=== PATIENT | female | born 1935 | race Caucasian/White ===

== ENCOUNTER 2016-08-22 13:58 | Outpatient (RCR) | payer OTHER, MEDICARE | END 2016-11-20 | disposition home or self-care (01) | LOC: PT | DX: R53.1 Weakness (principal); Z91.81 History of falling ==

== ENCOUNTER 2017-05-20 11:32 | Inpatient (IN) | payer MEDICARE, OTHER ==
[~2017-05-20] VITALS: Ht 165.1 cm; Wt 61.2 kg
--- NOTE | 2017-05-20 12:50 | NUR ---
Pt admitted SWB to room 208. Pt transferred from [facility] via POV driven by . Pt A&O. Reports being very weak and SOB. Noted to use purse-lipped breathing with extended conversation and upon ambulation. Sats 93-94% RA. Pt noted to have multiple bruises to bilat arms from IV's and lab draws during previous hospitalization. Lungs CTA with diminished bases. No crackles or wheezes noted. BS active x 4, pt reports last BM today. Pt noted to have reddened area to sacrum, tissue intact. Stimulators noted to each buttock, pt reports one is dorsal and one is peripheral and reports new generator installed 2016. Pt ambulates using walker. Reports this is intermittent at home but has been weak since hospitalization and does not feel steady without walker. Pt brought pt own walker in along with 2 inhalers, eye gtts and estrogen.
[2017-05-20 13:20] VITALS: BP 156/60
[2017-05-20 18:18] VITALS: BP 149/62
--- NOTE | 2017-05-20 18:20 | NUR ---
Report received from Aron Lemus RN and care assumed. Pt resting in chair, no needs at this time. Call light in reach, chair alarm on.
[2017-05-20 18:35] VITALS: BP 149/62
[2017-05-20] MEDS ORDERED: IPRATROPIUM BROM3 M1 IH (20:45)
[2017-05-20] MEDS ORDERED: NICOTINE14 MG/24 H TD (20:45)
[2017-05-20] MEDS ORDERED: PROAIR HFA0.09 MG/AC IH (20:46)
[2017-05-20] MEDS ORDERED: HYDROCHLOROTHIA1 T15 PO (20:46)
[2017-05-20] MEDS ORDERED: CENTRUM SILVER1 EACH PO (20:47)
[2017-05-20] MEDS ORDERED: RT SPIRIVA INH18 MCG IH (20:48)
[2017-05-20] MEDS ORDERED: ZYRTEC ALLERGY10 MG PO (20:48)
[2017-05-20] MEDS ORDERED: SINGULAIR PO (20:48)
[2017-05-20] MEDS ORDERED: VITAMIN D 1001000 IU PO (20:49)
[2017-05-20] MEDS ORDERED: ISOSORBIDE30 MG PO (20:49)
[2017-05-20] MEDS ORDERED: ASPIRIN E.C. 8181 MG PO (20:50)
[2017-05-20] MEDS ORDERED: LOPRESSOR 550 MG/TAB PO (20:50)
[2017-05-20] MEDS ORDERED: VITAMIN C500 M7 PO (20:50)
[2017-05-20] MEDS ORDERED: PROBIOTIC 4X C1 EACH PO (20:51)
[2017-05-20] MEDS ORDERED: CLOPIDOGREL PO (20:51)
[2017-05-20] MEDS ORDERED: REFRESH TEARS15 ML OP (20:52)
[2017-05-20] MEDS ORDERED: PREMARIN0.45 MG PO (20:52)
[2017-05-20] MEDS ORDERED: TRAVATAN Z 2.52.5 ML OU (20:53)
[2017-05-20] MEDS ORDERED: SYMBICORT1 AE2 IH (20:53)
[2017-05-20] MEDS ORDERED: PROCARDIA XL30 M1 PO (20:54)
[2017-05-20] MEDS ORDERED: 8 HOUR650 MG PO (20:55)
--- NOTE | 2017-05-20 21:34 | NUR ---
Pt states that she would like to wait a little longer to take the robitussin this evening. No further needs at this time. Call light in reach, bed alarm on.
--- NOTE | 2017-05-20 21:51 | NUR ---
Report given to Aron Wood RN and care transferred. Call light in reach, bed alarm on.
--- NOTE | 2017-05-21 01:08 | NUR ---
PATIENT CALLS AND REPORTS TO SOFTWARE CLIENT ARCHITECT THAT SHE "CAN'T STOP ITCHING." THIS NURSE TO GO SEE PATIENT. PATIENT STATES HER LEFT LEG/HIP "IS ITCHING AND TO THE POINT THAT IT HURTS." THIS NURSE TO OBSERVE EXTREMETY, IT IS REDDENED AND DRY. THIS NURSE TO ADMINISTER LOTION TO THE AREA AND TO ABDOMEN FOR MORE ITCHING. PATIENT IS AGREEABLE TO SEE HOW THAT WORKS. PATIENT STATES SHE "WON'T BE ABLE TO SLEEP RIGHT NOW BECAUSE IT HURTS." PATIENT ENCOURAGED TO CALL IF ITCHING DOES NOT SUBSIDE. CALL LIGHT WITHIN REACH AND BED ALARM ON.
[2017-05-21 06:08] VITALS: BP 148/59
--- NOTE | 2017-05-21 08:30 | NUR ---
Pt returns from bathroom with SBA of staff. Stops several times r/t SOB, before being seated in recliner. Reports that she thinks she is feeling better but is still not back to baseline. Reports pain 8/10 to joints, stating she takes "Tylenol Arthritis" BID for pain. Pt noted to have expiratory wheezes in LLL, is reminded to focus on deep breaths when using IS. Pt noted to be SOB when talking and ambulating.
[2017-05-21 18:22] VITALS: BP 151/81
--- NOTE | 2017-05-21 20:48 | NUR ---
PATIENT LAYING SUPINE IN BED WATCHING TV. SHIFT ASSESSMENT COMPLETED AT THIS TIME. PATIENT A/O X4. RATING PAIN 10/10 IN FEET STATING IT'S "BECAUSE THEY GOT COLD." RIGHT LOBES WITH EXPIRATORY WHEEXES, LLL WITH INSIRATORY AND EXPIRATORY WHEEZES, AND ARISTIDES WITH INSPIRATORY WHEEZES. PATIENT STATES COUGH WITH THICK, YELLOW SPUTUM AND SHORTNESS OF BREATH WHILE AT REST A LITTLE, BUT MAINLY WHILE AMBULATING. HS MEDICATIONS GIVEN. PATIENT WITH NO FURTHER NEEDS AT THIS TIME, WILL CONTINUE TO MONITOR. CALL LIGHT WITHIN REACH AND BED ALARM ON.
[2017-05-22 06:35] VITALS: BP 178/69
--- NOTE | 2017-05-22 09:45 | NUR ---
Pt continues to have productive cough. Sputum thick and light yellow/green. Reports feeling drained this AM but looking forward to assist with shower by OT. Noted to have inspiratory wheezes throughtout all lung millard.
--- NOTE | 2017-05-22 18:06 | NUR ---
Pt returning from BR, stops at sink to wash hands and is having difficulty "catching breath." Uses pursed lipped breathing and is able to ambulate back to recliner. Reports feeling like she is going to have a panic attack because she can't breath. Assisted to sit in recliner and administered duoneb breathing tx.
--- NOTE | 2017-05-22 18:17 | NUR ---
Pt reports feeling less SOB after breathing tx.
[2017-05-22 18:26] VITALS: BP 130/44
--- NOTE | 2017-05-22 19:37 | NUR ---
Report received from Skye NUNN. Patient sitting up in recliner with pressure pad chair alarm on. A/O x4. States her feet are cold and hurt. States pain level is 8/10 to feet, back, and has a hand with intermittent cramping. Warm blanket provided for feet. Tylenol 650 MG given PO for pain. Assessment completed. Pulls 1500 ML on I.S. x10 reps. Uses flutter valve. Cough elitited. States coughing up less phelgm, yellow and thick. Chocolate ensure provided per order. Denies further wants or needs. Call light in reach.
--- NOTE | 2017-05-23 01:45 | NUR ---
Resting with eyes closed. No signs of pain or distress. Call light in reach.
--- NOTE | 2017-05-23 04:25 | NUR ---
Shortly after up to BR with assist has a coughing spell. Rings call light and states to CAR SUPERVISOR that she is having "foot pain and I want this cough to stop". Nurse to room. PRN Albuterol Inhaler 2 puffs administered along with PRN Tessalon Perles, and Tylenol 650 MG. Rates pain to feet 9/10. States it is intermittent sharp, stapping pain from her neuropathy.
[2017-05-23 06:30] VITALS: BP 134/59
--- NOTE | 2017-05-23 07:02 | NUR ---
Report to Lena NUNN.
--- NOTE | 2017-05-23 08:00 | NUR ---
PT UP IN CHAIR, REPORTS CHRONIC PAIN LEVEL OF 7/10 "ALL OVER", BRUISE NOTED TO RIGHT ABDOMEN TISSUE AREA AND DOWN TO RIGHT HIP, PT STATES THIS STARTED WITH THE "LOVENOX SHOTS" AND LYING IN HER BED TOO MUCH AT THE LAST HOSPITALIZATION, WILL REPORT BRUISE TO PROVIDER AND CONTINUE TO MONITOR, PT DENIES ANY NEW ACUTE PAINS, STATES SHE IS ABLE TO GO TO AND FROM THE BATHROOM WITHOUT "HUFFING AND PUFFING" MUCH YESTERDAY, THIS NURSE AND PT DISCUSS STAYING ON TOP OF PRN PEARLES TODAY TO HELP AIDE WITH COUGH AND PT AGREES, COMPLEX ASSESSMENT COMPLETED AND CHARTED, NO ACUTE CHANGES, DENIES FURTHER NEEDS, SITTING IN CHAIR FINISHING BREAKFAST WITH CALL LIGHT WITHIN REACH
--- NOTE | 2017-05-23 12:15 | NUR ---
PT ENCOURAGED AFTER GOING TO AND FROM BATHROOM, ALTHOUGH SOB IS NOTED, PT STATES THIS IS "MUCH BETTER" THAN SHE HAS BEEN DOING
--- NOTE | 2017-05-23 14:05 | NUR ---
PT'S IN, SUPPLIES NURSING STAFF WITH NEW SYMBICORT AND LATANOPRAST EYE GTT REFILLS, PUT HOME MEDS IN PATIENTS BOX
[2017-05-23 18:39] VITALS: BP 116/50
--- NOTE | 2017-05-23 19:20 | NUR ---
Report received from Lena NUNN. Patient sitting up in chair. A/O x4. Rates pain to back, hips and feet 11/01. States "it's not too bad right now.". States she has a "pretty good day" and feels like she is getting better. Lungs diminished all millard. States had productive cough of yellow phelgm earlier. Moderate amount. Has some edema to top of right foot. States BM x2 today, no problems with urination. Tries Ensure with ice cream and still does not like it. Will try and offer alternative snacks. Eating vegetables and dip at this time. Denies wants or needs. Pressure pad chair alarm on. Call light in reach.
--- NOTE | 2017-05-24 02:52 | NUR ---
Up to BR with SBA. Able to get self in and out of bed independently. Voids 200 ML of clear yellow urine. Requests Tylenol and cough medication. Pain level 6/10 to back, hips and feet. SCD's on BLE. Bed alarm on. Call light in reach.
[2017-05-24 06:33] VITALS: BP 149/55
--- NOTE | 2017-05-24 07:05 | NUR ---
Report to Lena NUNN.
--- NOTE | 2017-05-24 14:01 | NUR ---
PT ENCOURAGED SHE WAS ABLE TO SHOWER TODAY WITHOUT NEEDING A PRN TREATMENT AFTER, PT RESTING IN BED WATCHING TELEVISION, SCHEDULED BREATHING TX ADMINISTERED AT THIS TIME, PRN TYLENOL AND PEARLES ADMINISTERED IN ORDER TO HELP PREVENT COUGHING SPELLS AND PAIN RELIEF FOR "ALL OVER" ACHES AND PAINS, NO FURTHER NEEDS AT THIS TIME, RESTING IN BED WITH CALL LIGHT WITHIN REACH
--- NOTE | 2017-05-24 15:21 | NUR ---
PT C/O A LEG CRAMP AT THIS TIME, WALKING IT OFF IN BRITO WITH 1:1 ASSIST USING WALKER AND GAIT BELT, PT ENCOURAGED TO STAY ACTIVE POSSIBLE AND DRINK PLENTY OF WATER, WILL CONTINUE TO MONITOR FOR FURTHER CRAMPING AND DISCOMFORT
[2017-05-24 18:13] VITALS: BP 129/50
--- NOTE | 2017-05-24 20:55 | NUR ---
Report received Lena RN. Patient sitting up in recliner. Just got back from BR. A/O x4. Rates pain 6/10 to back, and feet. Assessment completed. States continues to have hand cramping off and on which is new for her. Has hx of leg cramps but not hand cramps. Scheduled HS medications taken. PRN Tylenol and Tessalon Perles given also. Uses I.S. and flutter valve. UNATTENDED GROUND SENSOR SPECIALIST to take for walk after nebulizer tx. Dr. Spaulding notifed of hand cramps. Labs ordered.
[2017-05-24 21:11] LABS: HEMATOCRIT 33.5 % (37.0-47.0); HEMOGLOBIN 10.8 g/dL (12.5-16.0); MEAN CELL VOLUME 94 fl (78-100); MEAN CORPUSCULAR HEMOGLOBIN 30 pg (27-31); MEAN CORPUSCULAR HGB CONC 32 g/dL (33-37); MEAN PLATELET VOLUME 9.7 fl (7.4-10.4); PLATELET COUNT 414 K/mm3 (130-400); RED BLOOD COUNT 3.57 M/mm3 (4.10-5.30); RED CELL DISTRIBUTION WIDTH 13.6 % (11.5-14.5)
--- NOTE | 2017-05-24 21:15 | NUR ---
Labs back, Dr. Spaulding aware of results. NNO.
[2017-05-24 21:22] LABS: BUN/CREATININE RATIO 38.3 (6.0-26.0); CALCIUM 9.9 mg/dL (8.4-10.2); POTASSIUM 4.1 mmol/L (3.6-5.0)
[2017-05-24 21:30] LABS: BAND 5 % (0-10)
[2017-05-24 21:31] LABS: LYMPHOCYTE 19 % (20-51); MONOCYTE 14 % (3-10); NEUTROPHILS 62 % (42-75)
--- NOTE | 2017-05-25 03:04 | NUR ---
Uses call light. Having leg cramp to right leg. Aspercreme applied. Warm blanket applied. Tylenol 650 MG PO given. .
--- NOTE | 2017-05-25 03:48 | NUR ---
Assisted to BR, voids 300 ML of clear yellow urine. Assisted back to bed. Leg cramps gone. Still has pain to back and feet. 11/01. SCD's reapplied per her request. Bed alarm on. Call light in reach.
[2017-05-25 06:38] VITALS: BP 133/47
--- NOTE | 2017-05-25 07:20 | NUR ---
Report to Skye NUNN.
--- NOTE | 2017-05-25 10:20 | NUR ---
Pt sitting up in recliner. Reports that she feels she is getting better everyday. Reports decreased recovery time after ambulation, to baseline respiratory rate. Pt continues to get SOB while talking or with any activity. Reports that only pain is in R side where she is experiencing "cramping." States that at home she takes OTC homeopathic "Hylands Muscle Cramps." Has asked to bring this in when here to visit and provider will review.
[2017-05-25 18:41] VITALS: BP 135/48
--- NOTE | 2017-05-25 23:25 | NUR ---
PATIENT SITTING UP IN CHAIR WATCHING TV. SHIFT ASSESSMENT COMPELTED AT THIS TIME. PATIENT A/O X4. REPORTS PAIN 5/10 THROUGHOUT WHOLE BODY, REQUESTING PRN TYLENOL. LUNGS WITH INSPIRATORY WHEEZES THROUGHOUT. SHORTNESS OF BREATH NOTED WITH AMBULATION FROM BATHROOM. PATIENT REPORTS A SMALL COUGH WITH THICK, YELLOW PRODUCTION. NICODERM PATCH CDI TO LEFT SHOULDER. HS MEDICATIONS GIVEN. PATIENT WITHOUT FURTHER NEEDS AT THIS TIME, WILL CONTINUE TO MONITOR. CALL LIGHT WITH REACH AND CHAIR ALARM ON.
[2017-05-26 06:24] VITALS: BP 144/49
--- NOTE | 2017-05-26 09:15 | NUR ---
Alpa York PA-C at bedside.
[2017-05-26 19:23] VITALS: BP 119/48
--- NOTE | 2017-05-26 21:00 | NUR ---
Report received from Margaret NUNN. Patient sitting up in recliner. A/O x4, rates pain to back, hips and feet 6/10. States has small amount of productive cough of "yellow sputum" but much better". Reports bowels moving. HS medications given. PRN Tyleno and Tessalon Pearles given per requests. Assessment completed and charted. Chair alarm on. Call light in reach.
--- NOTE | 2017-05-26 22:30 | NUR ---
Ambulated in hallway with BOTTLE HOUSE QUALITY CONTROL TECHNICIAN to nurse station and back. Gait steady with walker. Tolerated well. Tired per her report. Back to room. HS cares completed and assisted to bed with bed alarm on. Call light in reach.
[2017-05-27 06:29] VITALS: BP 152/53
--- NOTE | 2017-05-27 06:40 | NUR ---
Scheduled AM medications taken. Pain level 9/10. PRN Tylenol given. Up to BR with SBA, voids 500 ML of pale yellow urine. Had Med BM. Assisted back to bed. SCD's off at this time. Bed alarm on. Call light in reach.
[2017-05-27 18:37] VITALS: BP 113/48
--- NOTE | 2017-05-27 20:30 | NUR ---
Report received from Margaret NUNN. Patient sitting up in recliner with pressure pad chair alarm on. A/O x4. Rates pain to back, hips legs and feet 8/10. PRN over the counter leg cramp medication requested and given with scheduled HS medications. Assessment completed. Denies wants or needs. Nebulizer tx taken at this time. Drinking ensure shake from RICE FIELD WORKER, normally refuses. Call light in reach.
--- NOTE | 2017-05-28 00:28 | NUR ---
Awakens for R foot cramp. Requests more over the counter leg cramp medication. Applied asper cream. Tylenol 650 MG taken PO. K-pad applied.
[2017-05-28 06:31] VITALS: BP 152/59
--- NOTE | 2017-05-28 07:15 | NUR ---
REPORT FROM EVON DE LA CRUZ
--- NOTE | 2017-05-28 07:25 | NUR ---
Report to Lou NUNN.
--- NOTE | 2017-05-28 08:15 | NUR ---
UP IN CHAIR AT BEDSIDE, TAKES BREAKFAST BUT STATES "THAT WAS THE FIRST THING i COULDNT EAT", ALTHOUGH THE PLATE WAS CLEANED OF FOOD, SHE THEN STATES, "AT [facility] I WOULDNT GET MY BREAKFAST FOR TWO HOURS AND IT WAS ALWAYS COLD", ATTEMPTED SEVERAL TIMES TORE-DIRECT PATIENT
--- NOTE | 2017-05-28 13:00 | NUR ---
REPORT TO LISA NUNN
[2017-05-28 13:22] LABS: EOS # 0.2 (0.04-0.40); EOS % 1.9 % (1.0-5.0); HEMATOCRIT 32.2 % (37.0-47.0); HEMOGLOBIN 10.5 g/dL (12.5-16.0); LYMPH# 1.2 (1.50-4.00); MEAN CELL VOLUME 94 fl (78-100); MEAN CORPUSCULAR HEMOGLOBIN 31 pg (27-31); MEAN CORPUSCULAR HGB CONC 33 g/dL (33-37); MEAN PLATELET VOLUME 9.6 fl (7.4-10.4); MONO # 0.7 (0.20-0.80); NEU # 7.2 (1.40-6.50); PLATELET COUNT 450 K/mm3 (130-400); RED BLOOD COUNT 3.42 M/mm3 (4.10-5.30); RED CELL DISTRIBUTION WIDTH 13.6 % (11.5-14.5); WHITE BLOOD COUNT 9.5 K/mm3 (4.8-10.8)
[2017-05-28 13:28] LABS: BUN/CREATININE RATIO 33.7 (6.0-26.0); CALCIUM 9.3 mg/dL (8.4-10.2); POTASSIUM 4.2 mmol/L (3.6-5.0)
[2017-05-28 18:14] VITALS: BP 122/46
[2017-05-29 07:04] VITALS: BP 151/60
--- NOTE | 2017-05-29 07:30 | NUR ---
REPORT RECEIVED FROM ALEYDA NUNN.
--- NOTE | 2017-05-29 08:29 | NUR ---
SITTING IN CHAIR EATING BREAKFAST. COMPLAINS ABOUT NOT RECEIVING TOAST INITIALLY, BUT REPORTS ANOTHER NURSE FETCHED HER A PIECE. SHE ALSO MENTIONS THAT SHE CAN DRINK HER HOT CEREAL INSTEAD OF USING A SPOON; CHUCKLES AT THIS. PRODUCTIVE COUGH OF THIN YELLOW SPUTUM. PATIENT CONCERNED THAT IT APPEARS GREEN AT TIMES. ENCOURAGE PATIENT TO CONTINUE TO COUGH OUT SPUTUM. DENIES SHORTNESS OF BREATH. RESP EVEN AND UNLABORED. THERE ARE A FEW FINE CRACKLES TO RT LOW LOBE. LE FREE OF EDEMA. CALL LIGHT IN REACH.
--- NOTE | 2017-05-29 10:00 | NUR ---
Pt is set up w/ HH services through [facility], per pt choice. She declines [facility] services.
--- NOTE | 2017-05-29 10:50 | NUR ---
PT DRESSED AND ROOM IS PACKED UP, READY TO DC, REQUESTS TO STAY UNTIL AFTER LUNCH, WILL ALLOW PT TO EAT LUNCH AND THEN SHE WILL BE READY TO DC HOME, PT STATES HER RIDE IS AWARE OF HER DEPARTURE TIME
[2017-05-29] MEDS ORDERED: BENZONATATE200 MG PO (10:55)
--- NOTE | 2017-05-29 11:12 | NUR ---
PT NOTIFIED AT THIS TIME AND INFORMATION INCLUDED IN DC PAPERWORK ALONG WITH ALL OTHER FOLLOW UP APPOINTMENTS THAT 'S OFFICE JUST CALLED AND HER APPT WITH IS SCHEDULED FOR Thursday06/05/17 AT 1330, PT STATES THIS APPOINTMENT WILL WORK FINE AND STATES HER APPRECIATION FOR GETTING THIS SET UP
--- NOTE | 2017-05-29 13:07 | NUR ---
ALL DC PAPERWORK REVIEWED AND UNDERSTOOD, INCLUDING ANY NEW PRESCRIPTIONS, ALL BELONGINGS AND HOME MEDS SENT WITH PT, PROVIDING TRANSPORTATION HOME, PT STABLE UPON DC, PT AMBULATORY TO POV AT THIS TIME TO DC HOME WITH HH SERVICES
== END 2017-05-29 13:07 | disposition home health service (06) | DRG 948 ==
LOC: MED/SURG 11:32
PROVIDERS: Family Medicine; ADMIT Physician Assistant
DX: R53.81 Other malaise (principal); J11.1 Influenza due to unidentified influenza virus with other respiratory manifestations; J44.9 Chronic obstructive pulmonary disease, unspecified; I10 Essential (primary) hypertension; R19.5 Other fecal abnormalities; E78.5 Hyperlipidemia, unspecified; I25.10 Atherosclerotic heart disease of native coronary artery without angina pectoris; F17.210 Nicotine dependence, cigarettes, uncomplicated; Z95.5 Presence of coronary angioplasty implant and graft

== ENCOUNTER 2018-11-01 15:36 | Inpatient (IN) | payer MEDICARE, OTHER ==
[~2018-11-01] VITALS: Ht 162.6 cm; Wt 73.8 kg
[~2018-11-01 15:36] MED LIST: 8 HOUR650 MG PO; ACETAMINOPHEN325 M1 PO; ALBUTEROL2.5 MG/3 M IH; ASPIRIN E.C. 8181 MG PO; BENZONATATE200 MG PO; CALCIUM CARBON500 M3 PO; CENTRUM SILVER1 EACH PO; CLOPIDOGREL PO; CYMBALTA20 MG PO; GOOD NEIGHBOR M25 MG PO; HYDROCHLOROTHIA1 T15 PO; IPRATROPIUM BROM3 M1 IH; ISOSORBIDE30 MG PO; LISINOPRIL40 MG PO; LOPRESSOR 550 MG/TAB PO; LYRICA50 MG PO; NEURONTIN300 M1 PO; NICOTINE14 MG/24 H TD; OXYCODONE5 M1 PO; PREMARIN0.45 MG PO; PROAIR HFA0.09 MG/AC IH; PROBIOTIC 4X C1 EACH PO; PROCARDIA XL30 M1 PO; REFRESH TEARS15 ML OP; RT SPIRIVA INH18 MCG IH; SINGULAIR PO; SYMBICORT1 AE2 IH; TOPROL XL 50MG50 MG PO; TRAVATAN Z 2.52.5 ML OU; VITAMIN C500 M7 PO; VITAMIN D 1001000 IU PO; ZYRTEC ALLERGY10 MG PO
[2018-11-01] MEDS ORDERED: ELIQUIS5 MG PO (15:58)
[2018-11-01] MEDS ORDERED: BUSPIRONE5 MG PO (15:59)
[2018-11-01] MEDS ORDERED: ANTACID500 M1 PO (16:01)
[2018-11-01] MEDS ORDERED: CYMBALTA30 M1 PO (16:02)
[2018-11-01] MEDS ORDERED: PEPCID 20MG TAB20 MG PO (16:03)
[2018-11-01] MEDS ORDERED: SYMBICORT1 AE3 IH (16:05)
[2018-11-01] MEDS ORDERED: LASIX40 M1 PO (16:06)
[2018-11-01 16:07] VITALS: BP 128/71
[2018-11-01] MEDS ORDERED: MUCINEX 60600 MG/TA1 PO (16:10)
[2018-11-01] MEDS ORDERED: APRESOLINE 10MG10 MG PO (16:12)
[2018-11-01] MEDS ORDERED: ACIDOPHILUS1 EAC2 PO (16:14)
[2018-11-01] MEDS ORDERED: LANTUS PEN100 U/ML SQ (16:15)
[2018-11-01] MEDS ORDERED: XALATAN 2.5 ML2.5 ML OU (16:17)
[2018-11-01] MEDS ORDERED: CLARITIN 1010 MG/TAB PO (16:20)
[2018-11-01] MEDS ORDERED: LOPRESSOR 225 MG/TAB PO (16:21)
[2018-11-01] MEDS ORDERED: MIRTAZAPINE7.5 M1 PO (16:22)
[2018-11-01] MEDS ORDERED: ZOFRAN ODT4 MG PO (16:24)
[2018-11-01] MEDS ORDERED: MULTI-VITAMIN1 EACH PO (16:24)
[2018-11-01] MEDS ORDERED: K-TAB10 MEQ PO (16:26)
[2018-11-01] MEDS ORDERED: DESYREL50 MG PO (16:28)
[2018-11-01] MEDS ORDERED: VITAMIN D31000 I1 PO (16:28)
[2018-11-01 17:24] LABS: ALBUMIN 2.7 g/dL (3.4-4.8); CALCIUM 8.8 mg/dL (8.3-10.5); POTASSIUM 4.3 mmol/L (3.5-5.1); TOTAL BILIRUBIN 0.3 mg/dL (0.2-1.2); TOTAL PROTEIN 6.2 g/dL (6.2-8.1)
[2018-11-01 17:26] LABS: HEMATOCRIT 27.3 % (37.0-47.0); MEAN CELL VOLUME 90 fl (78-100); MEAN CORPUSCULAR HEMOGLOBIN 26 pg (27-31); MEAN PLATELET VOLUME 9.8 fl (7.4-10.4); RED BLOOD COUNT 3.03 M/mm3 (4.10-5.30); WHITE BLOOD COUNT 9.9 K/mm3 (4.8-10.8)
[2018-11-01 18:19] LABS: MEAN CORPUSCULAR HGB CONC 29 g/dL (33-37); RED CELL DISTRIBUTION WIDTH 18.9 % (11.5-14.5)
[2018-11-01 18:20] LABS: PLATELET COUNT 699 K/mm3 (130-400)
[2018-11-01 18:23] LABS: HYPOCHROMIA 2+; LYMPHOCYTE 21 % (20-51); MONOCYTE 11 % (3-10); NEUTROPHILS 68 % (42-75)
[2018-11-01 18:51] VITALS: BP 138/83
[2018-11-01 23:43] LABS: URINE APPEARANCE HAZY; URINE BILIRUBIN NEGATIVE (NEGATIVE); URINE BLOOD 50 ery/uL (NEGATIVE); URINE COLOR YELLOW; URINE GLUCOSE NEGATIVE (NEGATIVE); URINE KETONE NEGATIVE (NEGATIVE); URINE LEUKOCYTE ESTERASE 1+ (NEGATIVE); URINE NITRATE NEGATIVE (NEGATIVE); URINE PROTEIN(semi-quant) 1+ mg/dL (NEGATIVE); URINE UROBILINOGEN NORMAL (NORMAL)
[2018-11-02 06:12] VITALS: BP 139/82
[2018-11-02 18:03] VITALS: BP 144/83
[2018-11-03 06:20] VITALS: BP 141/71
[2018-11-03 11:51] VITALS: BP 138/82
[2018-11-03 18:42] VITALS: BP 141/82
[2018-11-04 06:31] VITALS: BP 132/79
[2018-11-04 19:00] VITALS: BP 117/71
[2018-11-05 06:07] VITALS: BP 119/58
[2018-11-05 08:12] LABS: CALCIUM 8.6 mg/dL (8.3-10.5); POTASSIUM 3.7 mmol/L (3.5-5.1)
[2018-11-05 18:43] VITALS: BP 130/60
[2018-11-06 06:25] VITALS: BP 141/84
[2018-11-06 18:22] VITALS: BP 122/63
[2018-11-07 06:02] VITALS: BP 126/81
[2018-11-07 08:22] LABS: CALCIUM 9.2 mg/dL (8.3-10.5); POTASSIUM 3.5 mmol/L (3.5-5.1)
[2018-11-07 18:51] VITALS: BP 106/54
[2018-11-08] VITALS (10 sets, daily range): BP systolic 103–170; BP diastolic 40–78
[2018-11-08 11:21] LABS: HEMOGLOBIN 8.2 g/dL (12.5-16.0); MEAN CELL VOLUME 89 fl (78-100); MEAN CORPUSCULAR HEMOGLOBIN 25 pg (27-31); MEAN PLATELET VOLUME 9.9 fl (7.4-10.4); RED BLOOD COUNT 3.27 M/mm3 (4.10-5.30); WHITE BLOOD COUNT 9.2 K/mm3 (4.8-10.8)
[2018-11-08 11:40] LABS: BAND 2 % (0-10); LYMPHOCYTE 21 % (20-51); MEAN CORPUSCULAR HGB CONC 28 g/dL (33-37); MONOCYTE 17 % (3-10); NEUTROPHILS 57 % (42-75); PLATELET COUNT 665 K/mm3 (130-400); RED CELL DISTRIBUTION WIDTH 18.6 % (11.5-14.5)
[2018-11-08 11:41] LABS: ALBUMIN 2.8 g/dL (3.4-4.8); CALCIUM 8.7 mg/dL (8.3-10.5); HYPOCHROMIA 1+; POTASSIUM 3.6 mmol/L (3.5-5.1); TOTAL BILIRUBIN 0.3 mg/dL (0.2-1.2); TOTAL PROTEIN 5.9 g/dL (6.2-8.1)
[2018-11-08 19:36] LABS: HEMATOCRIT 28.1 % (37.0-47.0); HEMOGLOBIN 8.2 g/dL (12.5-16.0); MEAN CELL VOLUME 87 fl (78-100); MEAN CORPUSCULAR HEMOGLOBIN 26 pg (27-31); RED BLOOD COUNT 3.22 M/mm3 (4.10-5.30); WHITE BLOOD COUNT 11.3 K/mm3 (4.8-10.8)
[2018-11-08 20:01] LABS: ALBUMIN 2.9 g/dL (3.4-4.8); ALT/SGPT 28 U/L (0-55); AST-SGOT 35 U/L (5-34); CALCIUM 8.7 mg/dL (8.3-10.5); CARBON DIOXIDE 23 mmol/L (23-31); GLUCOSE 171 mg/dL (65-105); POTASSIUM 3.8 mmol/L (3.5-5.1); SODIUM 136 mmol/L (136-145); TOTAL BILIRUBIN 0.3 mg/dL (0.2-1.2); TOTAL PROTEIN 6.1 g/dL (6.2-8.1)
[2018-11-08 20:05] LABS: MEAN CORPUSCULAR HGB CONC 29 g/dL (33-37); PLATELET COUNT 717 K/mm3 (130-400); RED CELL DISTRIBUTION WIDTH 18.6 % (11.5-14.5); TROPONIN-I < 0.03 ng/mL (<0.030)
[2018-11-08] MEDS ORDERED: CIPRO 500MG TA500 MG PO (20:17)
[2018-11-08 20:29] LABS: NEUTROPHILS 57 % (42-75)
[2018-11-08 20:30] LABS: HYPOCHROMIA 1+; LYMPHOCYTE 27 % (20-51); MONOCYTE 14 % (3-10)
[2018-11-08 21:02] LABS: URINE APPEARANCE HAZY; URINE COLOR YELLOW; URINE PROTEIN(semi-quant) 2+ mg/dL (NEGATIVE)
[2018-11-08 21:03] LABS: URINE BILIRUBIN NEGATIVE (NEGATIVE); URINE BLOOD NEGATIVE (NEGATIVE); URINE GLUCOSE NEGATIVE (NEGATIVE); URINE KETONE NEGATIVE (NEGATIVE); URINE LEUKOCYTE ESTERASE TRACE (NEGATIVE); URINE NITRATE NEGATIVE (NEGATIVE); URINE UROBILINOGEN NORMAL (NORMAL)
[2018-11-09 12:47] LABS: URINE MUCUS PRESENT (NOT PRESENT)
== END 2018-11-08 21:10 | disposition short-term general hospital (02) | DRG 947 ==
LOC: MED/SURG 15:36
PROVIDERS: ADMIT Nurse Practitioner Primary Care
DX: R53.81 Other malaise (principal); J96.01 Acute respiratory failure with hypoxia; N39.0 Urinary tract infection, site not specified; Z86.718 Personal history of other venous thrombosis and embolism; Z66 Do not resuscitate; Z89.421 Acquired absence of other right toe(s); E11.51 Type 2 diabetes mellitus with diabetic peripheral angiopathy without gangrene; Z79.4 Long term (current) use of insulin; I10 Essential (primary) hypertension; I48.0 Paroxysmal atrial fibrillation; Z99.81 Dependence on supplemental oxygen; J44.9 Chronic obstructive pulmonary disease, unspecified
CPT/HCPCS: A4618; J0360; J1815; J1940; J2060

== ENCOUNTER 2018-11-15 11:01 | Inpatient (IN) | payer MEDICARE, OTHER ==
[~2018-11-15] VITALS: Ht 162.6 cm; Wt 68.5 kg
[~2018-11-15 11:01] MED LIST changes: +ACIDOPHILUS1 EAC2 PO; +ANTACID500 M1 PO; +APRESOLINE 10MG10 MG PO; +BUSPIRONE5 MG PO; +CIPRO 500MG TA500 MG PO; +CLARITIN 1010 MG/TAB PO; +CYMBALTA30 M1 PO; +DESYREL50 MG PO; +ELIQUIS5 MG PO; +K-TAB10 MEQ PO; +LANTUS PEN100 U/ML SQ; +LASIX40 M1 PO; +LOPRESSOR 225 MG/TAB PO; +MIRTAZAPINE7.5 M1 PO; +MUCINEX 60600 MG/TA1 PO; +MULTI-VITAMIN1 EACH PO; +PEPCID 20MG TAB20 MG PO; +SYMBICORT1 AE3 IH; +VITAMIN D31000 I1 PO; +XALATAN 2.5 ML2.5 ML OU; +ZOFRAN ODT4 MG PO
[2018-11-16] MEDS ORDERED: COUMADIN 5MG5 MG/TAB PO (17:05)
[2018-11-16] MEDS ORDERED: LOPRESSOR 550 MG/TAB PO (17:05)
[2018-11-16] MEDS ORDERED: CYMBALTA20 MG PO (17:11)
[2018-11-16] MEDS ORDERED: MECLIZINE PO (17:16)
[2018-11-16] MEDS ORDERED: ZESTRIL40 M1 PO (17:17)
[2018-11-16] MEDS ORDERED: LYRICA50 MG PO (17:18)
[2018-11-16] MEDS ORDERED: PREMARIN0.45 MG PO (17:18)
[2018-11-16] MEDS ORDERED: TRAVATAN Z 2.52.5 ML OU (17:19)
[2018-11-16] MEDS ORDERED: REFRESH TEARS15 ML OP (17:21)
[2018-11-16] MEDS ORDERED: ZYRTEC ALLERGY10 MG PO (17:27)
[2018-11-16] MEDS ORDERED: ASPIRIN ADULT L81 M3 PO (17:27)
[2018-11-16] MEDS ORDERED: ISOSORBIDE MONO10 MG PO (17:28)
[2018-11-16 18:24] VITALS: BP 144/64
[2018-11-16 18:29] VITALS: BP 144/64; BP 144/644
[2018-11-17 06:06] VITALS: BP 104/61
[2018-11-17 06:43] LABS: HEMATOCRIT 26.5 % (37.0-47.0); MEAN CELL VOLUME 84 fl (78-100); MEAN PLATELET VOLUME 9.7 fl (7.4-10.4); PLATELET COUNT 461 K/mm3 (130-400); RED BLOOD COUNT 3.16 M/mm3 (4.10-5.30); WHITE BLOOD COUNT 7.9 K/mm3 (4.8-10.8)
[2018-11-17 06:51] LABS: ALBUMIN 2.9 g/dL (3.4-4.8)
[2018-11-17 06:52] LABS: CALCIUM 9.1 mg/dL (8.3-10.5); PROTHROMBIN TIME 18.4 SECONDS (9.0-12.0)
[2018-11-17 06:54] LABS: TOTAL PROTEIN 6.2 g/dL (6.2-8.1)
[2018-11-17 06:56] LABS: TOTAL BILIRUBIN 0.4 mg/dL (0.2-1.2)
[2018-11-17 07:17] LABS: HEMOGLOBIN 7.6 g/dL (12.5-16.0); MEAN CORPUSCULAR HEMOGLOBIN 24 pg (27-31); MEAN CORPUSCULAR HGB CONC 29 g/dL (33-37); RED CELL DISTRIBUTION WIDTH 18.5 % (11.5-14.5)
[2018-11-17 07:18] LABS: BAND 1 % (0-10); HYPOCHROMIA 1+; LYMPHOCYTE 26 % (20-51); MONOCYTE 12 % (3-10); NEUTROPHILS 59 % (42-75)
[2018-11-17 08:35] LABS: URINE APPEARANCE HAZY; URINE BILIRUBIN NEGATIVE (NEGATIVE); URINE BLOOD 50 ery/uL (NEGATIVE); URINE COLOR YELLOW; URINE GLUCOSE NEGATIVE (NEGATIVE); URINE KETONE NEGATIVE (NEGATIVE); URINE LEUKOCYTE ESTERASE NEGATIVE (NEGATIVE); URINE NITRATE NEGATIVE (NEGATIVE); URINE PROTEIN(semi-quant) 2+ mg/dL (NEGATIVE); URINE UROBILINOGEN NORMAL (NORMAL)
[2018-11-17 18:00] VITALS: BP 107/55
[2018-11-18 06:13] VITALS: BP 162/82
[2018-11-18 09:50] LABS: PROTHROMBIN TIME 23.3 SECONDS (9.0-12.0)
[2018-11-18 18:37] VITALS: BP 117/64
[2018-11-19 06:12] VITALS: BP 105/57
[2018-11-19 07:48] LABS: HEMATOCRIT 29.5 % (37.0-47.0); HEMOGLOBIN 8.5 g/dL (12.5-16.0); MEAN CELL VOLUME 82 fl (78-100); MEAN PLATELET VOLUME 9.8 fl (7.4-10.4); PLATELET COUNT 474 K/mm3 (130-400); RED BLOOD COUNT 3.59 M/mm3 (4.10-5.30)
[2018-11-19 07:57] LABS: POTASSIUM 3.6 mmol/L (3.5-5.1)
[2018-11-19 07:58] LABS: CALCIUM 8.8 mg/dL (8.3-10.5); PROTHROMBIN TIME 32.4 SECONDS (9.0-12.0)
[2018-11-19 08:05] LABS: BAND 1 % (0-10); LYMPHOCYTE 20 % (20-51); MEAN CORPUSCULAR HEMOGLOBIN 24 pg (27-31); MEAN CORPUSCULAR HGB CONC 29 g/dL (33-37); MONOCYTE 18 % (3-10); NEUTROPHILS 55 % (42-75); RED CELL DISTRIBUTION WIDTH 18.5 % (11.5-14.5)
[2018-11-19 08:06] LABS: HYPOCHROMIA 1+
[2018-11-19 18:46] VITALS: BP 111/68
[2018-11-20 06:29] VITALS: BP 116/53
[2018-11-20 09:56] LABS: PROTHROMBIN TIME 35.2 SECONDS (9.0-12.0)
[2018-11-20 18:27] VITALS: BP 108/67
[2018-11-21 06:22] VITALS: BP 160/70
[2018-11-21 10:04] LABS: PROTHROMBIN TIME 33.3 SECONDS (9.0-12.0)
[2018-11-21 18:47] VITALS: BP 109/66
[2018-11-22 06:20] VITALS: BP 110/70
[2018-11-22 09:30] LABS: PROTHROMBIN TIME 27.2 SECONDS (9.0-12.0)
[2018-11-22 18:11] VITALS: BP 114/67
[2018-11-23 06:22] VITALS: BP 138/75
[2018-11-23 06:31] LABS: PROTHROMBIN TIME 26.8 SECONDS (9.0-12.0)
[2018-11-23 19:13] VITALS: BP 106/48
[2018-11-23 21:45] VITALS: BP 138/48
[2018-11-23 22:30] VITALS: BP 138/48
[2018-11-24 06:35] VITALS: BP 111/53
[2018-11-24 09:09] LABS: PROTHROMBIN TIME 23.8 SECONDS (9.0-12.0)
[2018-11-24 13:43] LABS: HEMATOCRIT 25.4 % (37.0-47.0); MEAN CELL VOLUME 80 fl (78-100); PLATELET COUNT 450 K/mm3 (130-400); RED BLOOD COUNT 3.17 M/mm3 (4.10-5.30); WHITE BLOOD COUNT 9.3 K/mm3 (4.8-10.8)
[2018-11-24 13:51] LABS: HEMOGLOBIN 7.3 g/dL (12.5-16.0); MEAN CORPUSCULAR HEMOGLOBIN 23 pg (27-31); MEAN CORPUSCULAR HGB CONC 29 g/dL (33-37); RED CELL DISTRIBUTION WIDTH 18.7 % (11.5-14.5)
[2018-11-24 13:53] LABS: POTASSIUM 4.1 mmol/L (3.5-5.1)
[2018-11-24 13:54] LABS: CALCIUM 9.3 mg/dL (8.3-10.5)
[2018-11-24 14:07] LABS: HYPOCHROMIA 2+; LYMPHOCYTE 18 % (20-51); MONOCYTE 13 % (3-10); MYELOCYTE 1 % (0-0); NEUTROPHILS 66 % (42-75)
[2018-11-24 14:08] LABS: OVALOCYTES 1+; POLYCHROMASIA 1+
[2018-11-24 14:14] VITALS: BP 105/52
[2018-11-24 18:37] VITALS: BP 155/75
[2018-11-25 06:27] VITALS: BP 143/84
[2018-11-25 06:47] LABS: HEMATOCRIT 25.2 % (37.0-47.0); MEAN CELL VOLUME 79 fl (78-100); MEAN PLATELET VOLUME 10.3 fl (7.4-10.4); PLATELET COUNT 399 K/mm3 (130-400); WHITE BLOOD COUNT 5.5 K/mm3 (4.8-10.8)
[2018-11-25 06:51] LABS: HEMOGLOBIN 7.4 g/dL (12.5-16.0); MEAN CORPUSCULAR HEMOGLOBIN 23 pg (27-31); MEAN CORPUSCULAR HGB CONC 29 g/dL (33-37); RED CELL DISTRIBUTION WIDTH 18.6 % (11.5-14.5)
[2018-11-25 07:35] LABS: HYPOCHROMIA 2+; LYMPHOCYTE 23 % (20-51); MONOCYTE 1 % (3-10); NEUTROPHILS 76 % (42-75)
[2018-11-25 07:36] LABS: MICROCYTOSIS 1+
[2018-11-25 11:12] VITALS: BP 116/47
[2018-11-25] MEDS ORDERED: COUMADIN 22.5 MG/TAB PO (13:59)
== END 2018-11-25 13:56 | disposition short-term general hospital (02) | DRG 947 ==
LOC: MED/SURG 11:01
PROVIDERS: Nurse Practitioner Family; Physician Assistant; ADMIT Nurse Practitioner Primary Care
DX: R53.81 Other malaise (principal); I50.33 Acute on chronic diastolic (congestive) heart failure; J18.1 Lobar pneumonia, unspecified organism; T87.43 Infection of amputation stump, right lower extremity; L03.115 Cellulitis of right lower limb; J44.1 Chronic obstructive pulmonary disease with (acute) exacerbation; J96.11 Chronic respiratory failure with hypoxia; B96.89 Other specified bacterial agents as the cause of diseases classified elsewhere; Z66 Do not resuscitate; Z99.81 Dependence on supplemental oxygen; D63.8 Anemia in other chronic diseases classified elsewhere; I48.91 Unspecified atrial fibrillation; I25.10 Atherosclerotic heart disease of native coronary artery without angina pectoris; E11.42 Type 2 diabetes mellitus with diabetic polyneuropathy; E11.65 Type 2 diabetes mellitus with hyperglycemia; I11.0 Hypertensive heart disease with heart failure; E11.51 Type 2 diabetes mellitus with diabetic peripheral angiopathy without gangrene; I48.0 Paroxysmal atrial fibrillation; Y95 Nosocomial condition; G89.29 Other chronic pain; M54.9 Dorsalgia, unspecified
CPT/HCPCS: J1815; J1940; J2185; J2930